=== PATIENT | male | born 1995 | race African-American/Black ===

== ENCOUNTER 2018-04-01 23:00 | Emergency (ER) | payer BC ==
[2018-04-02] MEDS ORDERED: predniSONE 20 MG TAB ONE (00:46)
[2018-04-02] MEDS ORDERED: FAMOTIDINE 20 MG TAB ONE (00:46)
--- NOTE | 2018-04-02 01:40 | EDPHYS ---
Physician Documentation [facility] Name: Eleazar Huang Age: 22 yrs Sex: Male : 1995 Arrival Date: 04/01/2018 Time: 23:01 Bed 16 Private MD: ED Physician Enrrique Hatch HPI: 04/02 02:17 This 22 yrs old Black Male presents to ER via Ambulatory with complaints of Breathing snw Difficulty, Vomiting, Sore Throat. 02:17 The patient has shortness of breath at rest. Onset: The symptoms/episode began/occurred snw suddenly, just prior to arrival. Duration: The symptoms are continuous. Associated signs and symptoms: The patient has no apparent associated signs or symptoms. Severity of symptoms: At their worst the symptoms were moderate. The patient has not experienced similar symptoms in the past. The patient has not recently seen a physician. recent severe allergies and post nasal drip. Historical: - Allergies: 04/01 23:12 No Known Allergies; ak1 - Home Meds: 23:12 None [Active]; ak1 - PMHx: 23:12 None; ak1 - PSHx: 23:12 None; ak1 - Immunization history:: Adult Immunizations unknown. - Social history:: Smoking status: Patient uses tobacco products, denies chronic smoking, but will smoke occasionally. ROS: 04/02 02:15 Constitutional: Negative for fever, chills, and weight loss, Eyes: Negative for injury, snw pain, redness, and discharge, ENT: Negative for injury and discharge, positive for sore throat and feeling like something is hung in his throat Neck: Negative for injury, pain, and swelling, Cardiovascular: Negative for chest pain, palpitations, and edema, Respiratory: Positive for shortness of breath, cough, No wheezing or pleuritic chest pain, Abdomen/GI: Negative for abdominal pain, nausea, vomiting, diarrhea, and constipation, Back: Negative for injury and pain, : Negative for injury, bleeding, discharge, and swelling, MS/Extremity: Negative for injury and deformity, Skin: Negative for injury, rash, and discoloration, Neuro: Negative for headache, weakness, numbness, tingling, and seizure, Psych: Negative for depression, anxiety, suicide ideation, homicidal ideation, and hallucinations. Exam: 02:15 Constitutional: This is a well developed, well nourished patient who is awake, alert, snw and in no acute distress. Head/Face: Normocephalic, atraumatic. Eyes: Pupils equal round and reactive to light, extra-ocular motions intact. Lids and lashes normal. Conjunctiva and sclera are non-icteric and not injected. Cornea within normal limits. Periorbital areas with no swelling, redness, or edema. ENT: Nares patent. No nasal discharge, no septal abnormalities noted. Tympanic membranes are normal and external auditory canals are clear. Oropharynx with no redness, swelling, or masses, exudates, or evidence of obstruction, uvula midline. Mucous membranes moist. Neck: Trachea midline, no thyromegaly or masses palpated, and no cervical lymphadenopathy. Supple, full range of motion without nuchal rigidity, or vertebral point tenderness. No Meningismus. Chest/axilla: Normal chest wall appearance and motion. Nontender with no deformity. No lesions are appreciated. Cardiovascular: Regular rate and rhythm with a normal S1 and S2. No gallops, murmurs, or rubs. Normal PMI, no JVD. No pulse deficits. Respiratory: Lungs have equal breath sounds bilaterally, clear to auscultation and percussion. No rales, rhonchi or wheezes noted. No increased work of breathing, no retractions or nasal flaring. Abdomen/GI: Soft, non-tender, with normal bowel sounds. No distension or tympany. No guarding or rebound. No evidence of tenderness throughout. Back: No spinal tenderness. No costovertebral tenderness. Full range of motion. Skin: Warm, dry with normal turgor. Normal color with no rashes, no lesions, and no evidence of cellulitis. MS/ Extremity: Pulses equal, no cyanosis. Neurovascular intact. Full, normal range of motion. Neuro: Awake and alert, GCS 15, oriented to person, place, time, and situation. Cranial nerves II-XII grossly intact. Motor strength 5/5 in all extremities. Sensory grossly intact. Cerebellar exam normal. Normal gait. Vital Signs: 04/01 23:12 BP 149 / 73; Pulse 91; Resp 20; Temp 98.4(TE); Pulse Ox 97% on R/A; Weight 90.72 kg ak1 (R); Height 5 ft. 7 in. (170.18 cm) (R); Pain 9/10; 04/02 00:15 BP 145 / 72; Pulse 86; Resp 16; Pulse Ox 99% on R/A; bs1 01:15 BP 127 / 74; Pulse 63; Resp 16; Temp 98(O); Pulse Ox 100% ; Pain 0/10; bs1 04/01 23:12 Body Mass Index 31.32 (90.72 kg, 170.18 cm) ak1 MDM: 04/01 23:33 Patient medically screened. snw 04/02 02:17 Data reviewed: vital signs, nurses notes. Data interpreted: Pulse oximetry: on room air snw is 100 %. Interpretation: normal. Counseling: I had a detailed discussion with the patient and/or guardian regarding: the historical points, exam findings, and any diagnostic results supporting the discharge/admit diagnosis, lab results, radiology results, the need for outpatient follow up, to return to the emergency department if symptoms worsen or persist or if there are any questions or concerns that arise at home. Special discussion: Based on the history and exam findings, there is no indication for further emergent testing or inpatient evaluation. I discussed with the patient/guardian the need to see the primary care provider for further evaluation of the symptoms. 04/01 23:33 Order name: Strep; Complete Time: 00:26 snw 04/02 00:15 Order name: Throat Culture EDMS 04/01 23:33 Order name: Chest Pa And Lat (2 Views) XRAY snw 04/02 00:29 Order name: Misc. Order: saline neb treatment (use about 6ml ns); Complete Time: 00:50 snw Administered Medications: 00:50 Drug: predniSONE 40 mg Route: PO; bs1 01:53 Follow up: Response: No adverse reaction bs1 00:50 Drug: Pepcid 20 mg Route: PO; bs1 01:53 Follow up: Response: No adverse reaction bs1 Disposition: 03:30 Co-signature as Attending Physician, Enrrique Hatch MD I agree with the assessment and tw4 plan of care. Disposition: 04/02/18 01:39 Discharged to Home. Impression: Allergic rhinitis, unspecified. - Condition is Stable. - Discharge Instructions: Allergies, Hay Fever, Allergic Rhinitis, Cough, Adult. - Prescriptions for Flonase Allergy Relief 50 mcg/actuation Nasal spray,suspension - inhale 1 spray by INTRANASAL route once daily; 1 Cartridge. Zyrtec 10 mg Oral Tablet - take 1 tablet by ORAL route once daily As needed; 20 tablet. Prednisone 20 mg Oral Tablet - take 2 tablet by ORAL route once daily for 5 days; 10 tablet. Pepcid 20 mg Oral Tablet - take 1 tablet by ORAL route once daily; 20 tablet. - Work release form, Medication Reconciliation Form, Thank You Letter, Antibiotic Education, Prescription Opioid Use form. - Follow up: Private Physician; When: 2 - 3 days; Reason: Recheck today's complaints, Continuance of care, Re-evaluation by your physician. Follow up: Emergency Department; When: As needed; Reason: Worsening of condition. Signatures: Dispatcher [employer] EDMT Yesica Garrison FNP-C FNP-Juanita Jones, RN RN ak1 Carmen Cornejo RN RN bs1 Enrrique Hatch MD MD tw4 Corrections: (The following items were deleted from the chart) 01:53 01:39 04/02/2018 01:39 Discharged to Home. Impression: Allergic rhinitis, unspecified. bs1 Condition is Stable. Forms are Medication Reconciliation Form, Thank You Letter, Antibiotic Education, Prescription Opioid Use. Follow up: Private Physician; When: 2 - 3 days; Reason: Recheck today's complaints, Continuance of care, Re-evaluation by your physician. Follow up: Emergency Department; When: As needed; Reason: Worsening of condition. snw
--- NOTE | 2018-04-02 01:40 | ER ---
Nurse's Notes [facility] Name: Eleazar Huang Age: 22 yrs Sex: Male : 1995 Arrival Date: 04/01/2018 Time: 23:01 Bed 16 Private MD: Diagnosis: Allergic rhinitis, unspecified Presentation: 04/01 23:10 Presenting complaint: Patient states: throat pain, nausea, vomiting, SOB started ak1 tonight. no resp distress noted. Transition of care: patient was not received from another setting of care. Onset of symptoms was April 01, 2018. Initial Sepsis Screen: Does the patient meet any 2 criteria? No. Patient's initial sepsis screen is negative. Does the patient have a suspected source of infection? No. Patient's initial sepsis screen is negative. Care prior to arrival: None. 23:10 Method Of Arrival: Ambulatory ak1 23:10 Acuity: SHELBY 4 ak1 Triage Assessment: 23:12 General: Appears in no apparent distress. Behavior is calm, cooperative. Pain: ak1 Complains of pain in throat. Neuro: No deficits noted. Cardiovascular: No deficits noted. Respiratory: Reports shortness of breath Onset: The symptoms/episode began/occurred today, the patient has mild shortness of breath. GI: No signs and/or symptoms were reported involving the gastrointestinal system. : No signs and/or symptoms were reported regarding the genitourinary system. Derm: No signs and/or symptoms reported regarding the dermatologic system. Musculoskeletal: No signs and/or symptoms reported regarding the musculoskeletal system. Historical: - Allergies: 23:12 No Known Allergies; ak1 - Home Meds: 23:12 None [Active]; ak1 - PMHx: 23:12 None; ak1 - PSHx: 23:12 None; ak1 - Immunization history:: Adult Immunizations unknown. - Social history:: Smoking status: Patient uses tobacco products, denies chronic smoking, but will smoke occasionally. Screenin:13 Abuse screen: Denies threats or abuse. Denies injuries from another. Nutritional ak1 screening: No deficits noted. Tuberculosis screening: No symptoms or risk factors identified. Fall Risk None identified. Assessment: 23:13 Respiratory: Airway is patent Respiratory effort is even, unlabored, ak1 23:14 Cardiovascular: Rhythm is regular. ak1 23:15 General: Appears in no apparent distress. uncomfortable, Behavior is calm, cooperative. bs1 Pain: Complains of pain in throat. Neuro: Level of Consciousness is awake, alert, obeys commands, Oriented to person, place, time, situation. Neuro: Reports difficulty swallowing. Cardiovascular: Denies chest pain, shortness of breath, Heart tones S1 S2 present Capillary refill < 3 seconds Patient's skin is warm and dry. Respiratory: Reports Airway is patent Trachea midline Respiratory effort is even, unlabored, Respiratory pattern is regular, symmetrical. Respiratory: Reports cough that is non-productive, difficulty swallowing, states "I feel like there's something in the back of my throat.". GI: Abdomen is non-distended, Bowel sounds present X 4 quads. Reports vomiting. : No deficits noted. No signs and/or symptoms were reported regarding the genitourinary system. EENT: Throat is pink Reports pain when swallowing. Derm: Skin is intact, Skin is pink, warm \\T\\ dry. Musculoskeletal: Circulation, motion, and sensation intact. Capillary refill < 3 seconds, Range of motion: intact in all extremities. 04/02 00:15 Reassessment: No changes from previously documented assessment. Patient and/or family bs1 updated on plan of care and expected duration. Pain level reassessed. Patient is alert, oriented x 3, equal unlabored respirations, skin warm/dry/pink. patient states "I feel like there is something stuck in the back of my throat.". 01:53 Reassessment: Patient appears in no apparent distress at this time. Patient and/or bs1 family updated on plan of care and expected duration. Pain level reassessed. Patient is alert, oriented x 3, equal unlabored respirations, skin warm/dry/pink. Patient states symptoms have improved. Vital Signs: 04/01 23:12 BP 149 / 73; Pulse 91; Resp 20; Temp 98.4(TE); Pulse Ox 97% on R/A; Weight 90.72 kg ak1 (R); Height 5 ft. 7 in. (170.18 cm) (R); Pain 9/10; 04/02 00:15 BP 145 / 72; Pulse 86; Resp 16; Pulse Ox 99% on R/A; bs1 01:15 BP 127 / 74; Pulse 63; Resp 16; Temp 98(O); Pulse Ox 100% ; Pain 0/10; bs1 04/01 23:12 Body Mass Index 31.32 (90.72 kg, 170.18 cm) ak1 ED Course: 04/01 23:01 Patient arrived in ED. vianney 23:10 Carmen Cornejo, RN is Primary Nurse. bs1 23:11 Triage completed. ak1 23:12 Arm band placed on Patient placed in an exam room, Patient notified of wait time. ak1 23:13 Patient has correct armband on for positive identification. ak1 23:33 Yesica Garrison FNP-C is PHCP. snw 23:33 Enrrique Hatch MD is Attending Physician. snw 23:47 Patient moved to radiology via wheelchair. kw 23:47 X-ray completed. Patient tolerated procedure well. kw 23:47 Patient moved back from radiology. kw 23:47 Chest Pa And Lat (2 Views) XRAY In Process Unspecified. EDMS 05 01:51 No provider procedures requiring assistance completed. Patient did not have IV access bs1 during this emergency room visit. Administered Medications: 00:50 Drug: predniSONE 40 mg Route: PO; bs1 01:53 Follow up: Response: No adverse reaction bs1 00:50 Drug: Pepcid 20 mg Route: PO; bs1 01:53 Follow up: Response: No adverse reaction bs1 Outcome: 01:39 Discharge ordered by MD. snw 01:51 Discharged to home ambulatory, with family. bs1 01:51 Condition: stable 01:51 Discharge instructions given to patient, Instructed on discharge instructions, follow up and referral plans. medication usage, Demonstrated understanding of instructions, follow-up care, medications, Prescriptions given X 4, Patient/family state understanding of POC/follow up 01:53 Patient left the ED. bs1 Signatures: Dispatcher [employer] EDMS Yesica Garrison FNP-C SIGNAL PROCESSING ENGINEER-Csnw Earlene Parsons Kimberlee kw Krenek, Amber, RN RN ak1 Carmen Cornejo, RN RN bs1 Corrections: (The following items were deleted from the chart) 04/01 23:46 23:15 EENT: No deficits noted. No signs and/or symptoms were reported regarding the bs1 EENT system. bs1
--- NOTE | 2018-04-02 07:42 | RAD REPORT ---
EXAM DESCRIPTION: RAD - Chest Pa And Lat (2 Views) - 04/01/2018 11:50 pm CLINICAL HISTORY: Throat pain, shortness of breath, vomiting, occasional smoking COMPARISON: None. TECHNIQUE: PA and lateral views of the chest were obtained. FINDINGS: The lungs are clear. Heart size is upper normal. No vascular engorgement. No pleural eff usion or pneumothorax seen. No acute bony finding noted. No aortic abnormality. IMPRESSION: No acute cardiopulmonary process.
== END 2018-04-02 01:53 | disposition home or self-care (01) ==
LOC: ER 23:00
DX: J30.9 Allergic rhinitis, unspecified (principal); Z72.0 Tobacco use
CPT/HCPCS: 71046; 87070; 87081; 99283; J7512

== ENCOUNTER 2021-02-18 01:33 | Emergency (ER) | payer BC ==
--- OUTSIDE RECORDS SUMMARY | 2021-02-18 01:35 | XMS REPORT | Continuity of Care Document ---
:1995 Author Organization [facility] t Address [address] [place] [address] Care Team Providers Name Role Phone Toni Messer Attending Clinician Unavailable Saman SILVA Attending Clinician Unavailable Only, Test Attending Clinician Unavailable Problems This patient has no known problems. Allergies, Adverse Reactions, Alerts This patient has no known allergies or adverse reactions. Medications This patient has no known medications. Procedures This patient has no known procedures. Encounters Start End Encounter Admission Attending Care Care Encounter Source Date/Time Date/Time Type Type Clinicians Facility Department ID 2020-09-09 2020-09-09 Letter Lab, [place]cp [place] [id number] 00:00:00 00:00:00 (Out) [facility] [id number] [place] [id number] [facility] [phone] [address] 2020-09-08 2020-09-08 Telephone Monica Davison [id number] 00:00:00 00:00:00 [place] [id number] [facility] [id number] 2020-09-07 2020-09-07 Laboratory Only, Adc [place] [id number] 14:34:58 14:49:58 Only Test [place] [id number] [place] [id number] [place] [phone] [id number] Results This patient has no known results.
[2021-02-18] MEDS ORDERED: NA CHLORIDE 0.9% 500 ML ONE (02:34)
[2021-02-18] MEDS ORDERED: AZITHROMYCIN 500 MG INJ IVPB ONE (02:34)
[2021-02-18] MEDS ORDERED: IBUPROFEN 400 MG TAB ONE (02:34)
[2021-02-18] MEDS ORDERED: dexAMETHasone 10 MG/ML VIAL ONE (02:34)
[2021-02-18] MEDS ORDERED: NA CHLORIDE 0.9% 250 ML ONE (02:34)
[2021-02-18] MEDS ORDERED: FAMOTIDINE 20 MG/2 ML VIAL IV ONE (02:34)
[2021-02-18] MEDS ORDERED: CEFTRIAXONE/SWI 1gm 1 GM/10 ML SYR ONE ×2 (02:34→02:41)
[2021-02-18] MEDS ORDERED: ALBUTEROL INHALER 60 PUFF/8 GM IH ONE (02:35)
[2021-02-18 02:37] LABS: Absolute Lymphocytes (CBC) 0.7 K/uL (0.7-4.9); Basophils % 0.6 % (0-1.3); Hematocrit 40.3 % (39.6-49.0); Lymphocytes % 18.1 % (15.3-44.8); MPV 7.5 fL (7.6-11.3); RBC Red Blood Cell Count 4.58 M/uL (4.33-5.43)
[2021-02-18 02:54] LABS: ALT/SGPT 48 U/L (12-78); AST/SGOT 29 U/L (15-37); Albumin 3.6 g/dL (3.4-5.0); Alkaline Phosphatase 44 U/L (45-117); BUN Blood Urea Nitrogen 9 mg/dL (7-18); Bicarbonate 27 mmol/L (21-32); Bilirubin Total 0.3 mg/dL (0.2-1.0); Glucose Level 101 mg/dL (74-106); Potassium 3.3 mmol/L (3.5-5.1); Protein, Total 8.2 g/dL (6.4-8.2); Sodium Level 139 mmol/L (136-145)
[2021-02-18 03:13] LABS: Platelet Estimate ADEQ
[2021-02-18 03:14] LABS: Blood Morphology Comment NOT SEEN (NOT SEEN)
--- NOTE | 2021-02-18 03:42 | EDPHYS ---
Physician Documentation [facility] Name: Eleazar Huang Age: 25 yrs Sex: Male : 1995 Arrival Date: 02/18/2021 Time: 01:33 Bed 6 Private MD: LAURA Physician Artemio Ellis HPI: 02/18 02:03 This 25 yrs old Black Male presents to ER via Ambulatory with complaints of Breathing jordi Difficulty. 02:03 The patient has shortness of breath at rest, with light activity. Onset: The jordi symptoms/episode began/occurred 1 day(s) ago. Duration: The symptoms are continuous, and are steadily getting worse. Historical: - Allergies: 01:42 No Known Allergies; ea - Home Meds: 02:52 None [Active]; sf - PMHx: 02:52 None; sf - PSHx: 02:52 None; sf - Immunization history:: Adult Immunizations unknown. - Social history:: Smoking status: unknown. ROS: 02:05 Eyes: Negative for injury, pain, redness, and discharge, ENT: Negative for injury, jordi pain, and discharge, Neck: Negative for injury, pain, and swelling, Cardiovascular: Negative for chest pain, palpitations, and edema, Abdomen/GI: Negative for abdominal pain, nausea, vomiting, diarrhea, and constipation, Back: Negative for injury and pain, : Negative for injury, bleeding, discharge, and swelling, MS/Extremity: Negative for injury and deformity, Skin: Negative for injury, rash, and discoloration, Neuro: Negative for headache, weakness, numbness, tingling, and seizure, Psych: Negative for depression, anxiety, suicide ideation, homicidal ideation, and hallucinations, Allergy/Immunology: Negative for hives, rash, and allergies, Endocrine: Negative for neck swelling, polydipsia, polyuria, polyphagia, and marked weight changes, Hematologic/Lymphatic: Negative for swollen nodes, abnormal bleeding, and unusual bruising. 02:05 Respiratory: Positive for cough. Exam: 02:05 Head/Face: Normocephalic, atraumatic. Eyes: Pupils equal round and reactive to light, jordi extra-ocular motions intact. Lids and lashes normal. Conjunctiva and sclera are non-icteric and not injected. Cornea within normal limits. Periorbital areas with no swelling, redness, or edema. ENT: Nares patent. No nasal discharge, no septal abnormalities noted. Tympanic membranes are normal and external auditory canals are clear. Oropharynx with no redness, swelling, or masses, exudates, or evidence of obstruction, uvula midline. Mucous membranes moist. Neck: Trachea midline, no thyromegaly or masses palpated, and no cervical lymphadenopathy. Supple, full range of motion without nuchal rigidity, or vertebral point tenderness. No Meningismus. Chest/axilla: Normal chest wall appearance and motion. Nontender with no deformity. No lesions are appreciated. Cardiovascular: Regular rate and rhythm with a normal S1 and S2. No gallops, murmurs, or rubs. Normal PMI, no JVD. No pulse deficits. Respiratory: Lungs have equal breath sounds bilaterally, clear to auscultation and percussion. No rales, rhonchi or wheezes noted. No increased work of breathing, no retractions or nasal flaring. Abdomen/GI: Soft, non-tender, with normal bowel sounds. No distension or tympany. No guarding or rebound. No evidence of tenderness throughout. Back: No spinal tenderness. No costovertebral tenderness. Full range of motion. Male : Normal genitalia with no discharge or lesions. Skin: Warm, dry with normal turgor. Normal color with no rashes, no lesions, and no evidence of cellulitis. MS/ Extremity: Pulses equal, no cyanosis. Neurovascular intact. Full, normal range of motion. Neuro: Awake and alert, GCS 15, oriented to person, place, time, and situation. Cranial nerves II-XII grossly intact. Motor strength 5/5 in all extremities. Sensory grossly intact. Cerebellar exam normal. Normal gait. Psych: Awake, alert, with orientation to person, place and time. Behavior, mood, and affect are within normal limits. 02:05 Constitutional: The patient appears febrile, in obvious distress. Vital Signs: 01:45 BP 145 / 85; Pulse 87; Resp 16 S; Temp 100.1(O); Pulse Ox 98% on R/A; Weight 129.27 kg bb (R); Height 5 ft. 7 in. (170.18 cm) (R); Pain 0/10; 01:45 BP 132 / 85; Pulse 87; Resp 18; Pulse Ox 98% ; sf 02:00 BP 129 / 84; Pulse 87; Resp 18; Pulse Ox 95% ; sf 02:30 BP 133 / 78; Pulse 80; Resp 18; Pulse Ox 96% ; sf 03:00 BP 119 / 75; Pulse 82; Resp 18; Pulse Ox 95% ; sf 03:36 BP 120 / 62; Pulse 73; Resp 18; Pulse Ox 99% ; sf 04:00 BP 123 / 86; Pulse 81; Resp 16; Pulse Ox 96% ; sf 01:45 Body Mass Index 44.64 (129.27 kg, 170.18 cm) bb MDM: 01:37 Patient medically screened. jordi 02:06 Differential diagnosis: asthma, Bronchitis pneumonia, reactive airway disease. jordi Antibiotic administration: Rocephin and Zithromax given. The patient's Wells Deep Vein Thrombosis Score was calculated as follows: Total Score: 0-2 Pts- Low Risk. The patient's pulmonary embolism risk score was calculated as follows: Total Score: 0-2 points. This patient was found to be at low risk for a pulmonary embolism by using the Well's assessment criteria. Immunization status:. Data reviewed: vital signs, nurses notes, lab test result(s), radiologic studies, plain films. Data interpreted: monitoring and evaluation advisor: rate is 87 beats/min, rhythm is regular, Pulse oximetry: is 98 %. Interpretation: normal. Test interpretation: by ED physician or midlevel provider: plain radiologic studies. Counseling: I had a detailed discussion with the patient and/or guardian regarding: the historical points, exam findings, and any diagnostic results supporting the discharge/admit diagnosis. 02/18 02:02 Order name: CBC with Diff; Complete Time: 03:29 [facility] 02/18 02:02 Order name: Comprehensive Metabolic Panel; Complete Time: 03:29 [facility] 02/18 02:02 Order name: Blood Culture Adult (2) [facility] 02/18 02:44 Order name: Manual Differential; Complete Time: 03:29 EDMS 04 02:05 Order name: Chest Pa And Lat (2 Views) XRAY jordi Administered Medications: 02:35 Drug: NS 0.9% 500 ml Route: IV; Rate: bolus; Site: right antecubital; ea 03:41 Follow up: Response: No adverse reaction sf 03:41 Follow up: IV Status: Completed infusion; IV Intake: 500ml sf 02:35 Drug: Albuterol HFA Inhaler 4 puffs Route: Inhalation; ea 03:40 Follow up: Response: No adverse reaction sf 02:36 Drug: Motrin (ibuprofen) 800 mg Route: PO; ea 03:41 Follow up: Response: No adverse reaction sf 02:36 Drug: Pepcid (famotidine) 20 mg Route: IVP; Site: right antecubital; ea 03:40 Follow up: Response: No adverse reaction sf 02:36 Drug: Decadron - Dexamethasone 10 mg Route: IVP; Site: right antecubital; ea 03:40 Follow up: Response: No adverse reaction sf 02:36 Drug: Rocephin - (cefTRIAXone) 1 grams Route: IVPB; Infused Over: 30 mins; Site: right ea antecubital; 02:50 Follow up: IV Status: Completed infusion sf 02:50 Follow up: IV Intake: 10ml sf 03:40 Follow up: Response: No adverse reaction sf 02:53 Drug: Zithromax (azithromycin) 500 mg Route: IVPB; Infused Over: 1 hrs; Site: right ea antecubital; 04:10 Follow up: Response: No adverse reaction; IV Status: Completed infusion; IV Intake: sf 250ml 03:40 Drug: Potassium Effervescent Tablet 25 mEq Route: PO; sf 04:04 Follow up: Response: No adverse reaction ea 04:09 Follow up: Response: No adverse reaction sf Disposition: 02/18/21 03:41 Discharged to Home. Impression: Dyspnea, Fever, unspecified, Acute upper respiratory infection, unspecified, Hypokalemia, Bandemia. - Condition is Stable. - Discharge Instructions: Shortness of Breath, Upper Respiratory Infection, Adult, Cool Mist Vaporizer, Upper Respiratory Infection, Adult, Uyqj-[id number], Cough, Adult, Mjtn-oj-Vami, Cough, Adult. - Prescriptions for dexamethasone 2 mg Oral tablet - take 1 tablet by ORAL route 3 times per day; 15 tablet. Pepcid 20 mg Oral Tablet - take 1 tablet by ORAL route every 12 hours for 10 days; 20 tablet. Albuterol Sulfate 90 mcg/actuation - inhale 1-2 puff by INHALATION route every 4-6 hours; 1 Inhaler. Zithromax 500 mg Oral Tablet - take 1 tablet by ORAL route once daily for 4 days; 4 tablet. - Medication Reconciliation Form, Thank You Letter, Antibiotic Education, Prescription Opioid Use, Work release form, Family Work Release form. - Follow up: Private Physician; When: 2 - 3 days; Reason: Recheck today's complaints, Continuance of care, Re-evaluation by your physician. - Problem is new. - Symptoms have improved. Signatures: Dispatcher [employer] [facility] Artemio Ellis MD MD cha Antunez, Elena RN Troy Peng ea, RN RN sf Corrections: (The following items were deleted from the chart) 03:51 02:02 CORONAVIRUS+MR.LAB.BRZ ordered. EDLA EDMS 03:52 02:02 Influenza Screen (A \T\ B)+BA.LAB.BRZ ordered. [facility] EDMS 04:19 03:41 02/18/2021 03:41 Discharged to Home. Impression: Dyspnea; Fever, unspecified; sf Acute upper respiratory infection, unspecified; Hypokalemia; Bandemia. Condition is Stable. Discharge Instructions: Shortness of Breath, Upper Respiratory Infection, Adult, Cool Mist Vaporizer, Upper Respiratory Infection, Adult, Rogb-ih-Gquc, Cough, Adult, Jgnc-xb-Dhzh, Cough, Adult. Prescriptions for dexamethasone 2 mg Oral tablet - take 1 tablet by ORAL route 3 times per day; 15 tablet, Pepcid 20 mg Oral Tablet - take 1 tablet by ORAL route every 12 hours for 10 days; 20 tablet, Albuterol Sulfate 90 mcg/actuation - inhale 1-2 puff by INHALATION route every 4-6 hours; 1 Inhaler, Zithromax 500 mg Oral Tablet - take 1 tablet by ORAL route once daily for 4 days; 4 tablet. and Forms are Medication Reconciliation Form, Thank You Letter, Antibiotic Education, Prescription Opioid Use. Follow up: Private Physician; When: 2 - 3 days; Reason: Recheck today's complaints, Continuance of care, Re-evaluation by your physician. Problem is new. Symptoms have improved. jordi
--- NOTE | 2021-02-18 03:42 | ER ---
Nurse's Notes [facility] Name: Eleazar Huang Age: 25 yrs Sex: Male : 1995 Arrival Date: 02/18/2021 Time: 01:33 Bed 6 Private MD: Diagnosis: Dyspnea;Fever, unspecified;Acute upper respiratory infection, unspecified;Hypokalemia;Bandemia Presentation: 02/18 01:40 Ebola Screen: No symptoms or risks identified at this time. Onset of symptoms was February. 01:43 Risk Assessment: Do you want to hurt yourself or someone else? Patient reports no ea desire to harm self or others. 01:45 Chief complaint: Patient states: he feels fine but his girlfriend says he is burning up bb he has seasonal allergies and is having those same symptoms now with a cough. Coronavirus screen: fever, headache. Initial Sepsis Screen: Does the patient meet any 2 criteria? No. Patient's initial sepsis screen is negative. Does the patient have a suspected source of infection? No. Patient's initial sepsis screen is negative. 01:45 Method Of Arrival: Ambulatory bb 01:45 Acuity: SHELBY 4 bb Historical: - Allergies: 01:42 No Known Allergies; ea - Home Meds: 02:52 None [Active]; sf - PMHx: 02:52 None; sf - PSHx: 02:52 None; sf - Immunization history:: Adult Immunizations unknown. - Social history:: Smoking status: unknown. Screenin:39 Abuse screen: Denies threats or abuse. Nutritional screening: No deficits noted. ea Tuberculosis screening: No symptoms or risk factors identified. Fall Risk None identified. Assessment: 01:40 General: Appears in no apparent distress. comfortable, Behavior is calm, cooperative. sf Pain: Complains of pain in face. Neuro: No deficits noted. Level of Consciousness is awake, alert, Oriented to person, place. Cardiovascular: No deficits noted. Patient's skin is warm and dry. Rhythm is regular. Respiratory: Reports shortness of breath cough that is Airway is patent Respiratory effort is even, unlabored, Respiratory pattern is regular, symmetrical, Breath sounds are clear bilaterally. GI: No signs and/or symptoms were reported involving the gastrointestinal system. : No signs and/or symptoms were reported regarding the genitourinary system. Derm: No signs and/or symptoms reported regarding the dermatologic system. Musculoskeletal: No signs and/or symptoms reported regarding the musculoskeletal system. 02:30 Reassessment: Patient appears in no apparent distress at this time. No changes from sf previously documented assessment. Patient and/or family updated on plan of care and expected duration. Pain level reassessed. Patient is alert, oriented x 3, equal unlabored respirations, skin warm/dry/pink. 03:44 Reassessment: Patient appears in no apparent distress at this time. No changes from sf previously documented assessment. Patient and/or family updated on plan of care and expected duration. Pain level reassessed. Patient is alert, oriented x 3, equal unlabored respirations, skin warm/dry/pink. Vital Signs: 01:45 BP 145 / 85; Pulse 87; Resp 16 S; Temp 100.1(O); Pulse Ox 98% on R/A; Weight 129.27 kg bb (R); Height 5 ft. 7 in. (170.18 cm) (R); Pain 0/10; 01:45 BP 132 / 85; Pulse 87; Resp 18; Pulse Ox 98% ; sf 02:00 BP 129 / 84; Pulse 87; Resp 18; Pulse Ox 95% ; sf 02:30 BP 133 / 78; Pulse 80; Resp 18; Pulse Ox 96% ; sf 03:00 BP 119 / 75; Pulse 82; Resp 18; Pulse Ox 95% ; sf 03:36 BP 120 / 62; Pulse 73; Resp 18; Pulse Ox 99% ; sf 04:00 BP 123 / 86; Pulse 81; Resp 16; Pulse Ox 96% ; sf 01:45 Body Mass Index 44.64 (129.27 kg, 170.18 cm) ED Course: 01:33 Patient arrived in ED. cl3 01:37 Artemio Ellis MD is Attending Physician. jordi 01:40 Patient has correct armband on for positive identification. Placed in gown. Bed in low ea position. Call light in reach. Pulse ox on. NIBP on. 01:42 Troy Diaz RN is Primary Nurse. sf 01:42 Arm band placed on right wrist. Patient placed in an exam room, on a stretcher, on ea pulse oximetry. 01:47 Triage completed. bb 02:15 Initial lab(s) drawn, by me, sent to lab. First set of blood cultures drawn by me, sf COVID swab sent to lab. Flu and/or RSV swab sent to lab. Inserted saline lock: 20 gauge in right forearm, using aseptic technique. Blood collected. 02:30 Second set of blood cultures drawn by ED staff. sf 03:04 Chest Pa And Lat (2 Views) XRAY Sent. sf 03:04 X-ray(s) taken. sf 03:54 Chest Pa And Lat (2 Views) XRAY In Process Unspecified. EDMS 04:18 No provider procedures requiring assistance completed. IV discontinued, intact, sf bleeding controlled, No redness/swelling at site. Pressure dressing applied. Administered Medications: 02:35 Drug: NS 0.9% 500 ml Route: IV; Rate: bolus; Site: right antecubital; ea 03:41 Follow up: Response: No adverse reaction sf 03:41 Follow up: IV Status: Completed infusion; IV Intake: 500ml sf 02:35 Drug: Albuterol HFA Inhaler 4 puffs Route: Inhalation; ea 03:40 Follow up: Response: No adverse reaction sf 02:36 Drug: Motrin (ibuprofen) 800 mg Route: PO; ea 03:41 Follow up: Response: No adverse reaction sf 02:36 Drug: Pepcid (famotidine) 20 mg Route: IVP; Site: right antecubital; ea 03:40 Follow up: Response: No adverse reaction sf 02:36 Drug: Decadron - Dexamethasone 10 mg Route: IVP; Site: right antecubital; ea 03:40 Follow up: Response: No adverse reaction sf 02:36 Drug: Rocephin - (cefTRIAXone) 1 grams Route: IVPB; Infused Over: 30 mins; Site: right ea antecubital; 02:50 Follow up: IV Status: Completed infusion sf 02:50 Follow up: IV Intake: 10ml sf 03:40 Follow up: Response: No adverse reaction sf 02:53 Drug: Zithromax (azithromycin) 500 mg Route: IVPB; Infused Over: 1 hrs; Site: right ea antecubital; 04:10 Follow up: Response: No adverse reaction; IV Status: Completed infusion; IV Intake: sf 250ml 03:40 Drug: Potassium Effervescent Tablet 25 mEq Route: PO; sf 04:04 Follow up: Response: No adverse reaction ea 04:09 Follow up: Response: No adverse reaction sf Intake: 02:50 IV: 10ml; Total: 10ml. sf 03:41 IV: 500ml; Total: 510ml. sf 04:10 IV: 250ml; Total: 760ml. sf Outcome: 03:41 Discharge ordered by . jordi 04:18 Discharged to home ambulatory. sf 04:18 Condition: stable 04:18 Discharge instructions given to patient, Instructed on discharge instructions, follow up and referral plans. medication usage, Demonstrated understanding of instructions, follow-up care, medications, Prescriptions given X 4. 04:19 Patient left the ED. sf Signatures: Dispatcher [employer] EDMS Artemio Ellis MD MD cha Ballard, Brenda, RN RN Earlene Paula RN RN ea Lewis, Charde cl3 Fitzpatrick, Steven, RN RN sf
[2021-02-18] MEDS ORDERED: POTASSIUM 25 MEQ EFFERV TAB ONE (03:54)
[2021-02-18 04:36] LABS: SARS-COV-2 RT PCR POSITIVE (NEGATIVE)
--- NOTE | 2021-02-18 09:35 | RAD REPORT ---
EXAM DESCRIPTION: RAD - Chest Pa And Lat (2 Views) - 02/18/2021 3:54 am CLINICAL HISTORY: COUGH, fever COMPARISON: March 2018 TECHNIQUE: Frontal and lateral views of the chest were obtained. FINDINGS: The lungs are normal volume. No dense mass or consolidation. Subtle parenchymal opacity pr esent right lung base new from the prior study. This may be a summation artifact. This is seen only o n the frontal projection. This is a minimal finding but could reflect a very mild or early right base infiltrate. Correlation is needed with exam findings. Trachea is midline. No air trapping. Heart size is normal and central vasculature is within normal limits. No pleural effusion or pneumothorax seen. No acute bony finding noted. No aortic abnormali ty. IMPRESSION: Minimal, subtle parenchymal opacification right base. This is probably still normal ran ge but could indicate very early stages of a right base pneumonia. Correlation is needed with any sup porting clinical or laboratory findings.
== END 2021-02-18 04:19 | disposition home or self-care (01) ==
LOC: ER 01:33
DX: U07.1 COVID-19 (principal); J06.9 Acute upper respiratory infection, unspecified; E87.6 Hypokalemia; D72.825 Bandemia; R50.9 Fever, unspecified
CPT/HCPCS: 96365; 87040 ×2; 85025; 36415; 80053; 0240U; 71046; 96375; 99284; J0456; J1100; J0696 ×2; J7050; J7040

== ENCOUNTER 2021-02-25 07:37 | Emergency (ER) | payer BC ==
--- OUTSIDE RECORDS SUMMARY | 2021-02-25 07:40 | XMS REPORT | Continuity of Care Document ---
:1995 Author Organization [facility] t Address [address] [place] [address] Care Team Providers Name Role Phone Toni [...] 2020-09-09 2020-09-09 Letter Lab, [place]cp [place] [id number] 00:00:00 00:00:00 (Out) Formerly [facility] [id number] [place] [id number] [facility] [phone] [address] 2020-09-08 2020-09-08 Telephone Monica Davison [id number] 00:00:00 00:00:00 CLAUDIA [id number] [facility] [phone] [id number] 2020-09-07 2020-09-07 Laboratory Only, Adc [place] [id number] 14:34:58 14:49:58 Only Test [place] [id number] [place] [id number] [place] [phone] Results This patient has no known results.
[2021-02-25 09:16] LABS: Absolute Lymphocytes (CBC) 0.7 K/uL (0.7-4.9); Basophils % 0.5 % (0-1.3); Hematocrit 43.6 % (39.6-49.0); Lymphocytes % 19.8 % (15.3-44.8); MPV 7.9 fL (7.6-11.3); RBC Red Blood Cell Count 5.05 M/uL (4.33-5.43)
[2021-02-25] MEDS ORDERED: ASPIRIN EC 81 MG TAB PO ONE (09:25)
[2021-02-25] MEDS ORDERED: dexAMETHasone 10 MG/ML VIAL ONE (09:25)
[2021-02-25] MEDS ORDERED: NA CHLORIDE 0.9% 500 ML ONE (09:26)
[2021-02-25] MEDS ORDERED: AZITHROMYCIN 500 MG INJ IVPB ONE (09:26)
[2021-02-25] MEDS ORDERED: NA CHLORIDE 0.9% 250 ML ONE (09:26)
[2021-02-25] MEDS ORDERED: FAMOTIDINE 20 MG/2 ML VIAL IV ONE (09:26)
[2021-02-25] MEDS ORDERED: CEFTRIAXONE/SWI 1gm 1 GM/10 ML SYR ONE (09:27)
[2021-02-25 09:29] LABS: ALT/SGPT 51 U/L (12-78); AST/SGOT 41 U/L (15-37); Albumin 3.3 g/dL (3.4-5.0); Alkaline Phosphatase 37 U/L (45-117); BUN Blood Urea Nitrogen 9 mg/dL (7-18); Bicarbonate 26 mmol/L (21-32); Bilirubin Total 0.6 mg/dL (0.2-1.0); Ferritin 808.6 ng/mL (26-388); Glucose Level 99 mg/dL (74-106); NT PRO-BNP 7 pg/mL (<125); Potassium 3.3 mmol/L (3.5-5.1); Protein, Total 8.9 g/dL (6.4-8.2); Sodium Level 135 mmol/L (136-145)
--- NOTE | 2021-02-25 10:20 | ER ---
Nurse's Notes [facility] Name: Eleazar Huang Age: 25 yrs Sex: Male : 1995 Arrival Date: 02/25/2021 Time: 07:40 Bed 20 Private MD: Diagnosis: Other viral pneumonia-Covid 19;Acute pharyngitis;Cough;Hypokalemia Presentation: 02/25 07:50 Chief complaint: Patient states: Diagnosed with Covid on 02/18. Pt states he is back ss today because he feels like he is having difficulty swallowing because of all the mucus he has. Also c/o painful cough. Denies fever. Coronavirus screen: Client denies travel out of the [place] in the last 14 days. Ebola Screen: Patient denies exposure to infectious person. Patient denies travel to an Ebola-affected area in the 21 days before illness onset. Initial Sepsis Screen: Does the patient meet any 2 criteria? No. Patient's initial sepsis screen is negative. Does the patient have a suspected source of infection? No. Patient's initial sepsis screen is negative. Risk Assessment: Do you want to hurt yourself or someone else? Patient reports no desire to harm self or others. Onset of symptoms was February 25, 2021. 07:50 Method Of Arrival: Ambulatory ss 07:50 Acuity: SHELBY 3 ss Triage Assessment: 11:07 General: Appears in no apparent distress. Behavior is calm, cooperative, appropriate bw for age. Historical: - Allergies: 07:52 No Known Allergies; ss - Home Meds: 07:52 None [Active]; ss - PMHx: 07:52 None; ss - PSHx: 07:52 None; ss - Immunization history:: Adult Immunizations unknown. - Social history:: Smoking status: Patient denies any tobacco usage or history of. Screenin:26 Abuse screen: Denies threats or abuse. Nutritional screening: No deficits noted. bw Tuberculosis screening: No symptoms or risk factors identified. Fall Risk None identified. Assessment: 09:26 Pain: Complains of pain in throat. Neuro: No deficits noted. Cardiovascular: No bw deficits noted. Respiratory: No deficits noted. GI: Reports nausea. : No deficits noted. No signs and/or symptoms were reported regarding the genitourinary system. EENT: Reports difficulty swallowing pain in throat. 10:13 Reassessment: Patient appears in no apparent distress at this time. No changes from previously documented assessment. Patient and/or family updated on plan of care and expected duration. Pain level reassessed. Patient is alert, oriented x 3, equal unlabored respirations, skin warm/dry/pink. 11:03 Reassessment: Patient appears in no apparent distress at this time. No changes from previously documented assessment. Patient and/or family updated on plan of care and expected duration. Pain level reassessed. Vital Signs: 07:50 BP 129 / 77; Pulse 109; Resp 18; Temp 97.1(TE); Pulse Ox 95% on R/A; Weight 127.01 kg; ss Height 5 ft. 7 in. (170.18 cm); 09:26 BP 98 / 70; Pulse 90; Resp 20; Pulse Ox 95% on R/A; bw 10:13 BP 107 / 53; Pulse 97; Resp 20; Pulse Ox 95% on R/A; bw 07:50 Body Mass Index 43.85 (127.01 kg, 170.18 cm) ED Course: 07:40 Patient arrived in ED. ds1 07:42 Artemio Ellis MD is Attending Physician. jordi 07:51 Triage completed. ss 07:52 Renée Palmer, RICRADO is Primary Nurse. bw 07:52 Arm band placed on right wrist. ss 09:26 Chest Single View XRAY In Process Unspecified. EDMS 09:26 Patient has correct armband on for positive identification. Call light in reach. Side bw rails up X 1. Pulse ox on. NIBP on. Warm blanket given. 09:26 CBC with Diff Sent. bw 09:26 No provider procedures requiring assistance completed. Inserted saline lock: 20 gauge bw in right hand, using aseptic technique. Blood collected. 10:20 Fabian Kang MD is Referral Physician. jordi 11:03 IV discontinued. bw Administered Medications: 09:25 Drug: Decadron - Dexamethasone 10 mg Route: IVP; Site: right hand; bw 10:17 Follow up: Response: No adverse reaction bw 09:25 Drug: Pepcid (famotidine) 20 mg Route: IVP; Site: right hand; bw 10:17 Follow up: Response: No adverse reaction 09:25 Drug: Aspirin 162 mg Route: PO; bw 10:17 Follow up: Response: No adverse reaction bw 09:25 Drug: NS 0.9% 500 ml Route: IV; Rate: bolus; Site: right hand; bw 10:17 Follow up: Response: No adverse reaction; IV Status: Completed infusion 09:26 Drug: Rocephin - (cefTRIAXone) 1 grams Route: IVPB; Infused Over: 30 mins; Site: right bw hand; 10:17 Follow up: Response: No adverse reaction; IV Status: Completed infusion bw 09:26 Drug: Zithromax (azithromycin) 500 mg Route: IVPB; Infused Over: 1 hrs; Site: right bw hand; 11:08 Follow up: Response: No adverse reaction; IV Status: Completed infusion bw 10:48 Drug: Potassium Effervescent Tablet 25 mEq Route: PO; bw 11:07 Follow up: Response: No adverse reaction bw Outcome: 10:20 Discharge ordered by . jordi 11:03 Discharged to home ambulatory. 11:03 Condition: stable 11:03 Discharge instructions given to patient. 11:09 Patient left the ED. Signatures: Dispatcher [employer] EDArtemio Tirado MD MD cha Sanford, Demi ds1 Leticia Dumont RN RN ss Renée Palmer RN RN Corrections: (The following items were deleted from the chart) 07:55 07:50 Acuity: SHELBY 3 ss ss 08:58 07:50 Acuity: SHELBY 4 ss ss
--- NOTE | 2021-02-25 10:20 | EDPHYS ---
Physician Documentation [facility] Name: Eleazar Huang Age: 25 yrs Sex: Male : 1995 Arrival Date: 02/25/2021 Time: 07:40 Bed 20 Private MD: ED Physician Artemio Ellis HPI: 02/25 08:43 This 25 yrs old Black Male presents to ER via Ambulatory with complaints of Difficulty jordi Swallowing, Cough. 08:43 The patient presents with sore throat, dysphagia, of both solids and liquids. The jordi patient describes throat pain as burning. Onset: The symptoms/episode began/occurred 3 day(s) ago. Severity of symptoms: At their worst the symptoms were mild, in the emergency department the symptoms are unchanged. Modifying factors: The symptoms are alleviated by nothing, the symptoms are aggravated by fluids, foods, swallowing. Associated signs and symptoms: Pertinent positives: cough, fever, flu-like symptoms. The patient has not experienced similar symptoms in the past. Historical: - Allergies: 07:52 No Known Allergies; ss - Home Meds: 07:52 None [Active]; ss - PMHx: 07:52 None; ss - PSHx: 07:52 None; ss - Immunization history:: Adult Immunizations unknown. - Social history:: Smoking status: Patient denies any tobacco usage or history of. ROS: 08:50 Constitutional: Negative for fever, chills, and weight loss, Eyes: Negative for injury, jordi pain, redness, and discharge, Neck: Negative for injury, pain, and swelling, Cardiovascular: Negative for chest pain, palpitations, and edema, Abdomen/GI: Negative for abdominal pain, nausea, vomiting, diarrhea, and constipation, Back: Negative for injury and pain, : Negative for injury, bleeding, discharge, and swelling, MS/Extremity: Negative for injury and deformity, Skin: Negative for injury, rash, and discoloration, Neuro: Negative for headache, weakness, numbness, tingling, and seizure, Psych: Negative for depression, anxiety, suicide ideation, homicidal ideation, and hallucinations, Allergy/Immunology: Negative for hives, rash, and allergies, Endocrine: Negative for neck swelling, polydipsia, polyuria, polyphagia, and marked weight changes, Hematologic/Lymphatic: Negative for swollen nodes, abnormal bleeding, and unusual bruising. 08:50 ENT: Positive for difficulty swallowing. Exam: 08:50 Constitutional: This is a well developed, well nourished patient who is awake, alert, jordi and in no acute distress. Head/Face: Normocephalic, atraumatic. Eyes: Pupils equal round and reactive to light, extra-ocular motions intact. Lids and lashes normal. Conjunctiva and sclera are non-icteric and not injected. Cornea within normal limits. Periorbital areas with no swelling, redness, or edema. Neck: Trachea midline, no thyromegaly or masses palpated, and no cervical lymphadenopathy. Supple, full range of motion without nuchal rigidity, or vertebral point tenderness. No Meningismus. Chest/axilla: Normal chest wall appearance and motion. Nontender with no deformity. No lesions are appreciated. Respiratory: Lungs have equal breath sounds bilaterally, clear to auscultation and percussion. No rales, rhonchi or wheezes noted. No increased work of breathing, no retractions or nasal flaring. Abdomen/GI: Soft, non-tender, with normal bowel sounds. No distension or tympany. No guarding or rebound. No evidence of tenderness throughout. Back: No spinal tenderness. No costovertebral tenderness. Full range of motion. Male : Normal genitalia with no discharge or lesions. Skin: Warm, dry with normal turgor. Normal color with no rashes, no lesions, and no evidence of cellulitis. MS/ Extremity: Pulses equal, no cyanosis. Neurovascular intact. Full, normal range of motion. Neuro: Awake and alert, GCS 15, oriented to person, place, time, and situation. Cranial nerves II-XII grossly intact. Motor strength 5/5 in all extremities. Sensory grossly intact. Cerebellar exam normal. Normal gait. Psych: Awake, alert, with orientation to person, place and time. Behavior, mood, and affect are within normal limits. 08:50 ENT: Posterior pharynx: Airway: normal, no evidence of obstruction, Tonsils: bilaterally enlarged, with erythema, Uvula: normal, midline, swelling, that is mild, erythema, that is mild, exudate, is not appreciated. Vital Signs: 07:50 BP 129 / 77; Pulse 109; Resp 18; Temp 97.1(TE); Pulse Ox 95% on R/A; Weight 127.01 kg; ss Height 5 ft. 7 in. (170.18 cm); 09:26 BP 98 / 70; Pulse 90; Resp 20; Pulse Ox 95% on R/A; bw 10:13 BP 107 / 53; Pulse 97; Resp 20; Pulse Ox 95% on R/A; bw 07:50 Body Mass Index 43.85 (127.01 kg, 170.18 cm) ss MDM: 07:42 Patient medically screened. jordi 08:56 Differential diagnosis: bronchitis, gastroesophageal reflux disease, group A strep jordi tonsillitis, influenza, laryngitis, peritonsillar abscess pharyngitis, tonsillitis, upper respiratory infection, uvulitis. Differential Diagnosis: Bronchitis Influenza Upper Respiratory Infection Sinusitis Pharyngitis Allergic Rhinitis Viral Syndrome Pneumonia. Data reviewed: vital signs, nurses notes, lab test result(s), radiologic studies, plain films. 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 Test interpretation: by ED physician or midlevel provider: plain radiologic studies. Counseling: I had a detailed discussion with the patient and/or guardian regarding: the historical points, exam findings, and any diagnostic results supporting the discharge/admit diagnosis, lab results, radiology results, the need for outpatient follow up, for definitive care, a family practitioner, a newscast director. 02/25 08:17 Order name: CBC with Diff [facility] 02/25 08:17 Order name: Comprehensive Metabolic Panel; Complete Time: 10:18 [facility] 02/25 08:17 Order name: Strep; Complete Time: 09:24 [facility] 02/25 08:17 Order name: Ferritin; Complete Time: 10:18 [facility] 02/25 08:17 Order name: CRP; Complete Time: 10:18 [facility] 02/25 08:17 Order name: BNP; Complete Time: 10:18 [facility] 02/25 08:17 Order name: Chest Single View XRAY [facility] 02/25 08:17 Order name: CBC with Automated Diff; Complete Time: 09:24 EDMS 02/25 09:26 Order name: Throat Culture EDMS Administered Medications: 09:25 Drug: Decadron - Dexamethasone 10 mg Route: IVP; Site: right hand; bw 10:17 Follow up: Response: No adverse reaction 09:25 Drug: Pepcid (famotidine) 20 mg Route: IVP; Site: right hand; bw 10:17 Follow up: Response: No adverse reaction bw 09:25 Drug: Aspirin 162 mg Route: PO; bw 10:17 Follow up: Response: No adverse reaction bw 09:25 Drug: NS 0.9% 500 ml Route: IV; Rate: bolus; Site: right hand; bw 10:17 Follow up: Response: No adverse reaction; IV Status: Completed infusion bw 09:26 Drug: Rocephin - (cefTRIAXone) 1 grams Route: IVPB; Infused Over: 30 mins; Site: right bw hand; 10:17 Follow up: Response: No adverse reaction; IV Status: Completed infusion bw 09:26 Drug: Zithromax (azithromycin) 500 mg Route: IVPB; Infused Over: 1 hrs; Site: right hand; 11:08 Follow up: Response: No adverse reaction; IV Status: Completed infusion bw 10:48 Drug: Potassium Effervescent Tablet 25 mEq Route: PO; bw 11:07 Follow up: Response: No adverse reaction Disposition: 02/25/21 10:20 Discharged to Home. Impression: Other viral pneumonia - Covid 19, Acute pharyngitis, Cough, Hypokalemia. - Condition is Stable. - Discharge Instructions: Potassium Content of Foods, Pharyngitis, Community-Acquired Pneumonia, Adult, Cool Mist Vaporizer, Pharyngitis, Icyy-xu-Inkj, Cough, Adult, Inqp-an-Qjtt, Aspirin and Your Heart, Cough, Adult, Sore Throat, Edgy-wy-Qjxd, Hypokalemia, COVID-19. - Prescriptions for dexamethasone 2 mg Oral tablet - take 1 tablet by ORAL route 3 times per day; 15 tablet. ivermectin 3 mg Oral tablet - take 4 tablet by ORAL route once daily x1 dose on day # 1and day #3; 8 tablet. Pepcid 20 mg Oral Tablet - take 1 tablet by ORAL route every 12 hours for 10 days; 30 tablet. Albuterol Sulfate 90 mcg/actuation Inhalation - inhale 2 puff by INHALATION route every 4-6 hours; 1 Inhaler. Zithromax 500 mg Oral Tablet - take 1 tablet by ORAL route once daily for 5 days; 5 tablet. - Medication Reconciliation Form, Thank You Letter, Antibiotic Education, Prescription Opioid Use, Work release form form. - Follow up: Private Physician; When: 2 - 3 days; Reason: Recheck today's complaints, Re-evaluation by your physician. Follow up: Fabian Kang; When: 2 - 3 days; Reason: Recheck today's complaints, Continuance of care, Re-evaluation by your physician. - Problem is new. - Symptoms have improved. Signatures: Dispatcher [employer] EDArtemio Tirado MD MD cha Smirch, Shelby, RN RN Renée Palmer RN RN Corrections: (The following items were deleted from the chart) 11:09 10:20 02/25/2021 10:20 Discharged to Home. Impression: Other viral pneumonia - Covid bw 19; Acute pharyngitis; Cough; Hypokalemia. Condition is Stable. Discharge Instructions: Pharyngitis, Community-Acquired Pneumonia, Adult, Cool Mist Vaporizer, Pharyngitis, Pdrl-mg-Ymkm, Cough, Adult, Bchb-wn-Rfpf, Aspirin and Your Heart, Cough, Adult, Sore Throat, Oblw-aq-Kfuo, COVID-19. Prescriptions for dexamethasone 2 mg Oral tablet - take 1 tablet by ORAL route 3 times per day; 15 tablet, ivermectin 3 mg Oral tablet - take 4 tablet by ORAL route once daily x1 dose on day # 1and day #3; 8 tablet, Pepcid 20 mg Oral Tablet - take 1 tablet by ORAL route every 12 hours for 10 days; 30 tablet, Albuterol Sulfate 90 mcg/actuation Inhalation - inhale 2 puff by INHALATION route every 4-6 hours; 1 Inhaler, Zithromax 500 mg Oral Tablet - take 1 tablet by ORAL route once daily for 5 days; 5 tablet. and Forms are Medication Reconciliation Form, Thank You Letter, Antibiotic Education, Prescription Opioid Use. Follow up: Private Physician; When: 2 - 3 days; Reason: Recheck today's complaints, Re-evaluation by your physician. Follow up: Fabian Kang; When: 2 - 3 days; Reason: Recheck today's complaints, Continuance of care, Re-evaluation by your physician. Problem is new. Symptoms have improved. jordi
--- NOTE | 2021-02-25 10:23 | RAD REPORT ---
EXAM DESCRIPTION: RAD - Chest Single View - 02/25/2021 9:26 am CLINICAL HISTORY: COUGH, COVID Diagnosis February COMPARISON: Two view chest February 18, 2021 TECHNIQUE: AP portable chest image was obtained 02/25/2021 9:26 am . FINDINGS: Since prior imaging significant airspace opacification has developed in the mid and lower lung abrams. This is a substantial progression from February 18. Heart size is prominent but stable. Pulmonary vasculature within normal limits. Trachea is midline. No measurable pleural effusion and no pneumothorax. No acute bony abnormality seen. No acute aortic f indings suspected. IMPRESSION: Moderate severity bilateral COVID-19 pneumonia. Findings represent significant progression from the February 18 imaging.
[2021-02-25] MEDS ORDERED: POTASSIUM 25 MEQ EFFERV TAB ONE (11:03)
[2021-02-25 14:23] VITALS: TEMP 97.1; O2SAT 95
[2021-02-25 14:30] VITALS: BP 107/53
== END 2021-02-25 11:09 | disposition home or self-care (01) ==
LOC: ER 07:37
DX: U07.1 COVID-19 (principal); J12.82 Pneumonia due to coronavirus disease 2019; E87.6 Hypokalemia; R05 Cough
CPT/HCPCS: 96365; 96368; 87070; 85025; 36415; 87081; 82728; 80053; 83880; 86140; 71045; 96375; 99284; 96366; J0456; J1100; J0696; J7050; J7040

== ENCOUNTER 2022-10-31 20:36 | Emergency (ER) | payer SELFPAY ==
--- OUTSIDE RECORDS SUMMARY | 2022-10-31 20:39 | XMS REPORT | Continuity of Care Document ---
:[address] [facility] t Address [address] [place] [address] Care Team Providers Name Role Phone Lab, Pcp Toni Attending Clinician Unavailable Monica Davison RN Attending Clinician Unavailable Only, Adc Test Attending Clinician Unavailable Herve Chapa MD Attending Clinician HERVE CHAPA Attending Clinician Unavailable ean Attending Clinician Unavailable [email or web address] Admitting Clinician Unavailable Payers Payer Name Policy Type Policy Number Effective Date Expiration Date S ource Problems This patient has no known problems. Allergies, Adverse Reactions, Alerts Allergy Allergy Status Severity Reaction(s) Onset Inactive Treating Comm ents Source Name Type Date Date Clinician NO KNOWN Drug Active Univers ALLERGIE Class ity of [facility] Social History Social Habit Start Date Stop Date Quantity Comments Source [facility] to SARS-CoV-2 [facility] sure [facility] Smoking Status Start Date Stop Date Source Unknown if ever smoked Universit y [facility] Medications This patient has no known medications. Procedures This patient has no known procedures. Encounters Start End Encounter Admission Attending Care Care Encounter Source Date/Time Date/Time Type Type Clinicians Facility Department ID 2020-09-09 2020-09-09 Letter Lab, Pcp ALFREDO [id number] 00:00:00 00:00:00 (Out) [place] [id number] [place] [id number] [place] [phone] [address]al [address] 2020-09-09 2020-09-09 Letter Lab, Pcp [facility] [id number] Univers 00:00:00 00:00:00 (Out) [facility] [id number] it y of [place] [id number] Bib as [place] [phone] Ny dical nal [address] [place] [address] 2020-09-08 2020-09-08 Telephone Monica Davison [id number] 00:00:00 00:00:00 CLAUDIA [id number] HOSPITAL [phone] [facility] 2020-09-08 2020-09-08 Telephone Monica Davison [id number] Univers 00:00:00 00:00:00 CLAUDIA [id number] it y of [facility] [id number] Bib as [phone] [address] 2020-09-07 2020-09-07 Laboratory Only, [facility] Test [facility] [id number]. [id number] Univers 14:34:58 14:49:58 Only Herve Chapa [place] [id number] ity of [place] [id number] [place] [phone] [address] 2020-09-07 2020-09-07 Laboratory Only, [facility] [id number] 14:34:58 14:49:58 Only Test [place] [id number] [place] [id number] [place] [id number] [facility] 2020-09-07 2020-09-07 Outpatient Moody CHAPA [facility] [id number] Univers 14:30:00 14:30:00 HERVE casarez of [facility] 2020-02-12 2020-02-12 Outpatient ean [facility] [address] [place] 05:08:00 05:08:00 0326 Medical Group Results This patient has no known results.
[2022-10-31] MEDS ORDERED: FLUORESCEIN SODIUM 1 MG/WRAP ONE (21:02)
[2022-10-31] MEDS ORDERED: TETRACAINE HCL 0.5% 4ML OPTH ONE (21:02)
--- NOTE | 2022-10-31 21:44 | EDPHYS ---
Physician Documentation [facility] Name: Eleazar Huang Age: 27 yrs Sex: Male : 1995 Arrival Date: 10/31/2022 Time: 20:40 Bed 10 Private MD: ED Physician Mo Gonzalez HPI: 10/31 20:53 This 27 yrs old Black Male presents to ER via Ambulatory with complaints of Foreign rn Body In Eye. 20:53 This 27 yrs old Black Male presents to ER via Ambulatory with complaints of Foreign rn Body In Eye. 20:53 The patient is experiencing foreign body sensation, The patient sustained dirt in eye, rn to the left eye, caused by debris. Onset: The symptoms/episode began/occurred today. Duration: the symptoms are continuous. Aggravated by rubbing, Alleviated by eye flush. Associated signs and symptoms: Pertinent negatives: fever. Patient does not utilize any form of vision correction. Severity of symptoms: At their worst the symptoms were moderate in the emergency department the symptoms are unchanged. The patient has not experienced similar symptoms in the past. The patient has not recently seen a physician. Pt reports at work, dirt got in eye, irrigated immediately, felt better for hours, then when driving home began to feel more irritation and drainage from eye. No contacts. No vision changes. Eye drops help temporarily. . Historical: - Allergies: 20:50 No Known Allergies; vc1 - Home Meds: 20:50 None [Active]; vc1 - PMHx: 20:50 None; vc1 - PSHx: 20:50 None; vc1 - Immunization history:: Client reports receiving the 2nd dose of the Covid vaccine, Pfizer. - Social history:: Smoking status: Patient denies any tobacco usage or history of. - Family history:: not pertinent. - Hospitalizations: : No recent hospitalization is reported. ROS: 20:53 Constitutional: Negative for fever, chills, and weight loss, Eyes: + foreign body rn sensation to left eye with drainage Exam: 20:53 Constitutional: This is a well developed, well nourished patient who is awake, alert, rn and in no acute distress. Head/Face: Normocephalic, atraumatic. Eyes: + left eye erythema with drainage, neg hyphema, neg hypopyon, PERRL, no foreign body with lids everted. + central corneal ulcer with fluorescein uptake on exam. Vital Signs: 20:52 Weight 129.27 kg; Height 5 ft. 7 in. (170.18 cm); Pain 0/10; vc1 20:52 BP 135 / 78; Pulse 77; Resp 18; Temp 98.8; Pulse Ox 98% ; vc1 20:52 Body Mass Index 44.64 (129.27 kg, 170.18 cm) vc1 MDM: 20:41 Patient medically screened. rn 21:42 Differential diagnosis: Corneal abrasion of Corneal ulcer of left eye. Foreign body in. rn Data reviewed: vital signs, nurses notes, and as a result, I will discharge patient. Counseling: I had a detailed discussion with the patient and/or guardian regarding: the historical points, exam findings, and any diagnostic results supporting the discharge/admit diagnosis, the need for outpatient follow up, to return to the emergency department if symptoms worsen or persist or if there are any questions or concerns that arise at home. Special discussion: I discussed with the patient/guardian in detail that at this point there is no indication for admission to the hospital. It is understood, however, that if the symptoms persist or worsen the patient needs to return immediately for re-evaluation. Based on the history and exam findings, there is no indication for further emergent testing or inpatient evaluation. I discussed with the patient/guardian the need to see the opthamologist for further evaluation of the symptoms. 10/31 20:51 Order name: Eye Tray; Complete Time: 21:00 rn 10/31 20:51 Order name: Fluoresene Opth strip; Complete Time: 21:00 rn Administered Medications: 21:28 Drug: Tetracaine Drops 0.5 % 1 drops Route: Ophthalmic; Site: left eye; ld1 21:54 Drug: Gentamicin Ointment 0.3 % 0.5 inches Route: Ophthalmic; Site: left eye; eh3 Disposition Summary: 10/31/22 21:44 Discharge Ordered Location: Home rn Problem: new rn Symptoms: have improved rn Condition: Stable rn Diagnosis - Central corneal ulcer, left eye rn Followup: rn - With: Florencio Bartlett MD - When: 1 - 2 days - Reason: Recheck today's complaints, Re-evaluation by your physician Discharge Instructions: - Discharge Summary Sheet rn - Corneal Ulcer rn - How to Use Eye Drops and Eye Ointments rn Forms: - Medication Reconciliation Form rn - Thank You Letter rn - Antibiotic bar turner - Prescription Opioid Use rn - Work release form ld1 Prescriptions: - Vigamox 0.5 % Ophthalmic Drops - instill 1 drop by OPHTHALMIC route every 8 hours for 7 days; 5 milliliter; rn Refills: 0, Product Selection Permitted Signatures: Mo Gonzalez MD MD rn Tracee Tipton RN RN ld1 Dahlia Sanabria RN RN vc1 Pilar Holder RN RN eh3 Corrections: (The following items were deleted from the chart) 21:43 20:53 Constitutional: This is a well developed, well nourished patient who is awake, rn alert, and in no acute distress. Head/Face: Normocephalic, atraumatic. Eyes: + left eye erythema with drainage, neg hyphema, neg hypopyon, PERRL rn
--- NOTE | 2022-10-31 21:44 | ER ---
Nurse's Notes [facility] Name: Eleazar Huang Age: 27 yrs Sex: Male : 1995 Arrival Date: 10/31/2022 Time: 20:40 Bed 10 Private MD: Diagnosis: Central corneal ulcer, left eye Presentation: 10/31 20:48 Chief complaint: Patient states: "I think I got some dirt in my eye". Ebola Screen: No vc1 symptoms or risks identified at this time. Risk Assessment: Do you want to hurt yourself or someone else? Patient reports no desire to harm self or others. Onset of symptoms was October 31, 2022. 20:48 Method Of Arrival: Ambulatory vc1 20:48 Acuity: SHELBY 4 vc1 Triage Assessment: 20:49 General: Appears in no apparent distress. uncomfortable, Behavior is calm, cooperative, vc1 appropriate for age. Pain: Complains of pain in left eye Pain does not radiate. EENT: Eyes are tearing on outer aspect of conjuctiva of left eye and inner aspect of conjunctiva of left eye reddened. Reports pain in left eye. Neuro: Level of Consciousness is awake, alert, obeys commands, Oriented to person, place, time, situation, Appropriate for age. Cardiovascular: No deficits noted. Respiratory: No deficits noted. GI: No deficits noted. : No deficits noted. Derm: No deficits noted. Musculoskeletal: No deficits noted. Historical: - Allergies: 20:50 No Known Allergies; vc1 - Home Meds: 20:50 None [Active]; vc1 - PMHx: 20:50 None; vc1 - PSHx: 20:50 None; vc1 - Immunization history:: Client reports receiving the 2nd dose of the Covid vaccine, Pfizer. - Social history:: Smoking status: Patient denies any tobacco usage or history of. - Family history:: not pertinent. - Hospitalizations: : No recent hospitalization is reported. Screenin:50 Abuse screen: Denies threats or abuse. Nutritional screening: No deficits noted. vc1 Tuberculosis screening: No symptoms or risk factors identified. Fall Risk No fall in past 12 months (0 pts). 20:51 [facility] ED Fall Risk Assessment (Adult) History of falling in the last 3 months, vc1 including since admission No falls in past 3 months (0 pts). Humpty Dumpty Scale Fall Assessment Tool (age< 18yrs) Age 13 years and above (1 pt) Gender Male (2 pts) Diagnosis Cognitive Impairments Oriented to own ability (1 pt). Assessment: 21:01 General: Appears in no apparent distress. uncomfortable, Behavior is calm, cooperative, ld1 appropriate for age. Pain: Complains of pain in left eye Pain does not radiate. Pain currently is 10 out of 10 on a pain scale. Quality of pain is described as stabbing, throbbing, Pain began suddenly. Neuro: Level of Consciousness is awake, alert, obeys commands, Oriented to person, place, time, situation, Appropriate for age. Cardiovascular: Capillary refill < 3 seconds Patient's skin is warm and dry. Respiratory: Airway is patent Respiratory effort is even, unlabored. GI: Abdomen is flat, non-distended. EENT: Eyes are tearing on outer aspect of conjuctiva of left eye, iris of left eye and inner aspect of conjunctiva of left eye. Vital Signs: 20:52 Weight 129.27 kg; Height 5 ft. 7 in. (170.18 cm); Pain 0/10; vc1 20:52 BP 135 / 78; Pulse 77; Resp 18; Temp 98.8; Pulse Ox 98% ; vc1 20:52 Body Mass Index 44.64 (129.27 kg, 170.18 cm) vc1 ED Course: 20:40 Patient arrived in ED. bp1 20:41 Mo Gonzalez MD is Attending Physician. rn 20:49 Triage completed. vc1 20:50 Arm band placed on right wrist. vc1 20:59 Tracee Tipton, RICARDO is Primary Nurse. ld1 21:01 Patient has correct armband on for positive identification. Placed in gown. Bed in low ld1 position. Call light in reach. Side rails up X2. Pulse ox on. NIBP on. Door closed. Noise minimized. Warm blanket given. 21:01 Assist provider with eye exam of left eye. using fluorescein stain, Performed by Mo Gonzalez MD Patient tolerated well. 21:44 Florencio Bartlett MD is Referral Physician. rn 22:10 Patient did not have IV access during this emergency room visit. eh3 Administered Medications: 21:28 Drug: Tetracaine Drops 0.5 % 1 drops Route: Ophthalmic; Site: left eye; ld1 21:54 Drug: Gentamicin Ointment 0.3 % 0.5 inches Route: Ophthalmic; Site: left eye; eh3 Medication: 20:52 VIS not applicable for this client. vc1 Outcome: 21:44 Discharge ordered by . rn 22:10 Discharged to home with significant other. 3 22:10 Condition: stable 22:10 Discharge instructions given to patient, significant other, Instructed on discharge instructions, follow up and referral plans. medication usage, Demonstrated understanding of instructions, follow-up care, medications, Prescriptions given X 1. 22:10 Patient left the ED. 3 Signatures: Mo Gonzalez MD MD rn [place], Brittany bp1 Dibbern, Lauren RN RN ld1 Dahlia Sanabria RN RN vc1 Pilar Holder RN RN eh3
[2022-10-31] MEDS ORDERED: GENTAMICIN 0.3% OPTH DROP 5ML ONE (21:56)
[2022-10-31 22:15] VITALS: BP 135/78; TEMP 98.8; O2SAT 98
== END 2022-10-31 22:10 | disposition home or self-care (01) ==
LOC: ER 20:36
DX: H16.012 Central corneal ulcer, left eye (principal)
CPT/HCPCS: 99284